=== PATIENT | male | born 1950 | race Caucasian/White ===

== ENCOUNTER 2016-03-31 13:13 | Emergency (ER) | payer MEDICARE, OTHER ==
[~2016-03-31] VITALS: Ht 167.6 cm; Wt 100.0 kg
[2016-03-31 13:23] VITALS: BP 143/82; PULSE 72; RESP 16; TEMP 98.2; O2SAT 96
[2016-03-31 13:57] VITALS: BP 134/90; PULSE 94; RESP 18; O2SAT 97; O2SAT 98
[2016-03-31 14:19] LABS: BASOPHIL # 0.1 TH/MM3 (0-0.2); BASOPHIL % 0.8 % (0.0-2.0); HEMATOCRIT 36.6 % (39.0-51.0); HEMO FLAGS DIFF FINAL; LYMPH % 14.6 % (9.0-44.0); MEAN CELL VOLUME 92.4 FL (80.0-100.0); MEAN CORPUSCULAR HGB CONC 33.6 % (32.0-36.0); NEUT % 74.6 % (16.0-70.0); PLATELET COUNT 177 TH/MM3 (150-450); RED BLOOD COUNT 3.96 MIL/MM3 (4.50-5.90); RED CELL DISTRIBUTION WIDTH 15.9 % (11.6-17.2); WHITE BLOOD COUNT 6.6 TH/MM3 (4.0-11.0)
[2016-03-31 14:35] LABS: BICARBONATE 25.4 MEQ/L (21.0-32.0); POTASSIUM 4.3 MEQ/L (3.5-5.1)
[2016-03-31 14:36] LABS: APTT (PATIENT) 25.7 SEC (24.3-30.1); INTERNATIONAL NORMALIZED RATIO 1.1 RATIO; PROTHROMBIN TIME - PATIENT 12.1 SEC (9.8-11.6)
[2016-03-31] MEDS ORDERED: LISI40TA PO (14:39)
[2016-03-31] MEDS ORDERED: ALLO300T2 PO (14:39)
[2016-03-31] MEDS ORDERED: GABA300C5 PO ×2 (14:39→16:15)
[2016-03-31] MEDS ORDERED: SIMV20TA PO (14:39)
[2016-03-31] MEDS ORDERED: OMEP20CA2 PO (14:39)
[2016-03-31] MEDS ORDERED: TOPR50TA PO (14:39)
[2016-03-31] MEDS ORDERED: TAPE50TA2 PO (14:39)
[2016-03-31 14:45] LABS: TOTAL BILIRUBIN ADULT 0.6 MG/DL (0.2-1.0)
[2016-03-31] MEDS ORDERED: SODIUM CHLOR 0.9% 1000 ML INJ 1,000 ML IV SCH (14:47)
--- NOTE | 2016-03-31 14:53 | PD ---
HPI Chief Complaint: GI Complaint Time Seen by Provider: 14:48 Travel History International Travel<30 days: No Contact w/Intl Traveler<30days: No Traveled to known affect area: No History of Present Illness HPI 66-year-old male that presents to the ED for evaluation of nausea and vomited and loss of weight and inability to eat for the past 2-3 months. Per patient he has had 3 major surgeries in his abdomen mainly for bypass surgery, hernia repair and perforated bowel. Patient states that he hasn't had any issues with the surgeries but he does tell me that he's been feeling more nauseous and vomiting. Per patient he is able to keep down his pills that he is having difficulty keeping food. Per patient his appetite seems to be gone. He denies any chest pain or shortness of breath. Per patient he hasn't really eaten much in the past 2-3 months and he is losing a lot of weight. He has no PCP in the area. Per patient she feels weak as well. No headache. No blurry vision. No bowel movement or urinary issues. Per patient when he vomits he vomits saliva and he is not really having any bowel movement secondary to not eating much. Denies any fevers chills or sweats. Has an allergy to Coltezene. He states that he went to an urgent care today to get evaluated for this as he was concerned and the doctor at the urgent care told to come here to get evaluated for likely IV fluids and imaging and labs. PFSH Past Medical History Tetanus Vaccination: < 5 Years Influenza Vaccination: Yes Past Surgical History Abdominal Surgery: Yes (HERNIA SURGERY ) Other Surgery: Yes (LASIX SURGERY BOTH EYES) Social History Alcohol Use: Yes (LIQUOR DAILY ) Tobacco Use: No Substance Use: No Allergies-Medications (Allergen,Severity, Reaction): Uncoded Allergies: COLTEZENE (Adverse Reaction, Unknown, DIARRHEA, 03/31/16) Reported Meds & Prescriptions Reported Meds & Active Scripts Active Reported Gabapentin 300 Mg Cap 300 Mg PO BID Allopurinol 300 Mg Tab 300 Mg PO BID Omeprazole 20 Mg Cap 20 Mg PO BID Nucynta ER (Tapentadol) 50 Mg Toni 50 Mg PO BID Simvastatin 20 Mg Tab 20 Mg PO HS Lisinopril 40 Mg Tab 40 Mg PO DAILY Toprol XL (Metoprolol Succinate) 50 Mg Tab 50 Mg PO BID Review of Systems Except as stated in HPI: all other systems reviewed are Neg Physical Exam Narrative GENERAL: SKIN: Warm and dry. HEAD: Atraumatic. Normocephalic. EYES: Pupils equal and round. No scleral icterus. No injection or drainage. ENT: No nasal bleeding or discharge. Mucous membranes pink and moist. Tongue is midline. No uvula deviation. No sign of mass or deformity to the throat. NECK: Trachea midline. No JVD. CARDIOVASCULAR: Regular rate and rhythm. No murmurs, S3, S4. RESPIRATORY: No accessory muscle use. Clear to auscultation. Breath sounds equal bilaterally. GASTROINTESTINAL: Abdomen soft, non-tender, nondistended. Hepatic and splenic margins not palpable. Patient does have multiple surgical scars to the abdomen. MUSCULOSKELETAL: Extremities without clubbing, cyanosis, or edema. No obvious deformities. Full range of motion of the upper and lower extremities bilaterally. 2+ pulses bilaterally. NEUROLOGICAL: Awake and alert. No obvious cranial nerve deficits. Motor grossly within normal limits. Five out of 5 muscle strength in the arms and legs. Normal speech. PSYCHIATRIC: Appropriate mood and affect; insight and judgment normal. Data Data Last Documented VS Vital Signs Date Time Temp Pulse Resp B/P Pulse Ox O2 Delivery O2 Flow Rate FiO2 03/31/16 13:57 98 Room Air 03/31/16 13:57 94 18 134/90 03/31/16 13:23 98.2 Orders Electrocardiogram (03/31/16 13:55) Complete Blood Count With Diff (03/31/16 13:55) Comprehensive Metabolic Panel (03/31/16 13:55) Prothrombin Time / Inr (Pt) (03/31/16 13:55) Act Partial Throm Time (Ptt) (03/31/16 13:55) Lipase (03/31/16 13:55) Urinalysis - C+S If Indicated (03/31/16 13:55) Thyroid Stimulating Hormone (03/31/16 13:55) Iv Access Insert/Monitor (03/31/16 13:55) Ecg Monitoring (03/31/16 13:55) Oximetry (03/31/16 13:55) Ct Abd/Pel W Iv Contrast(Rout) (03/31/16 14:18) Sodium Chlor 0.9% 1000 Ml Inj (Ns 1000 M (03/31/16 14:47) Chest, Single Ap (03/31/16 ) Iohexol 350 Inj (Omnipaque 350 Inj) (03/31/16 15:14) Labs Laboratory Tests Test 03/31/16 14:10 White Blood Count 6.6 TH/MM3 Red Blood Count 3.96 MIL/MM3 Hemoglobin 12.3 GM/DL Hematocrit 36.6 % Mean Corpuscular Volume 92.4 FL Mean Corpuscular Hemoglobin 31.0 PG Mean Corpuscular Hemoglobin 33.6 % Concent Red Cell Distribution Width 15.9 % Platelet Count 177 TH/MM3 Mean Platelet Volume 8.8 FL Neutrophils (%) (Auto) 74.6 % Lymphocytes (%) (Auto) 14.6 % Monocytes (%) (Auto) 10.0 % Eosinophils (%) (Auto) 0.0 % Basophils (%) (Auto) 0.8 % Neutrophils # (Auto) 5.0 TH/MM3 Lymphocytes # (Auto) 1.0 TH/MM3 Monocytes # (Auto) 0.7 TH/MM3 Eosinophils # (Auto) 0.0 TH/MM3 Basophils # (Auto) 0.1 TH/MM3 CBC Comment DIFF FINAL Differential Comment Prothrombin Time 12.1 SEC Prothromb Time International 1.1 RATIO Ratio Activated Partial 25.7 SEC Thromboplast Time Sodium Level 141 MEQ/L Potassium Level 4.3 MEQ/L Chloride Level 105 MEQ/L Carbon Dioxide Level 25.4 MEQ/L Anion Gap 11 MEQ/L Blood Urea Nitrogen 11 MG/DL Creatinine 1.46 MG/DL Estimat Glomerular Filtration 48 ML/MIN Rate Random Glucose 160 MG/DL Calcium Level 7.2 MG/DL Protein Corrected Calcium 8.0 MG/DL Total Bilirubin 0.6 MG/DL Aspartate Amino Transf 91 U/L (AST/SGOT) Alanine Aminotransferase 37 U/L (ALT/SGPT) Alkaline Phosphatase 146 U/L Total Protein 5.6 GM/DL Albumin 2.9 GM/DL Lipase 73 U/L Thyroid Stimulating Hormone 0.703 uIU/ML 3rd Gen [facility] Medical Decision Making Medical Screen Exam Complete: Yes Emergency Medical Condition: Yes Medical Record Reviewed: Yes Interpretation(s) CBC & BMP Diagram 03/31/16 14:10 LFTs WNL Lipase WNL Last Impressions Abdomen/Pelvis CT 03/31/16 1418 Signed Impressions: Service Date/Time: Thursday, March 31, 2016 15:04 - CONCLUSION: Gallstones. Left kidney lower pole calyceal nonobstructing stones . Small 1-2 cm patchy area of airspace disease in the right middle lobe. Surgical clips and shaunna at the GE junction and fundus of the stomach Guilherme Lynn MD Chest X-Ray 03/31/16 0000 Signed Impressions: Service Date/Time: Thursday, March 31, 2016 15:45 - CONCLUSION: No acute disease. Guilherme Lynn MD Differential Diagnosis Malnutrition versus anorexia versus obstruction versus acute abdomen versus pancreatitis versus liver disease versus electrolyte abnormality versus kidney disease Narrative Course 66-year-old male that presents to the ED for evaluation of inability to eat and nausea and vomiting. Patient was properly examined and was found to have signs and symptoms of unclear etiology at this time. physical exam and vitals appears to be reassuring. Patient does not appear to be very dehydrated. Concern for obstruction is present. Labs and imaging ordered. Labs and imaging WNL. Patient was told about results. Patient was told that she will likely require follow-up with a GI specialist to better evaluate for this. CT of the abdomen did show patchy airspace disease on the right side. This is likely secondary to chronic lung disease but we'll treat with azithromycin cover for infection. Patient was given Zofran for his nausea and vomiting. Patient was given a refill of his gabapentin. Patient was told that he needs to follow closely with GI. Given information for Dr. Ward. He agrees with plan. He understands that he needs to follow-up. See ED worsening symptoms. Diagnosis Primary Impression: Nausea & vomiting Qualified Code: R11.2 - Non-intractable vomiting with nausea, unspecified vomiting type Additional Impression: Malnutrition Referrals: Keyonna Ward MD Patient Instructions: General Instructions Additional Instructions: Take medication as prescribed. Follow with PCP. See ED worsening symptoms. Follow with GI doctor for further testing. Take protein shake or ensure over- the-counter to help with malnourishment. Med/Other Pt SpecificInfo: Prescription(s) given Scripts Azithromycin 250 Mg [id number] Mg PO DIRECTED #6 TAB Take 2 tabs (500 mg) on day 1 then 1 tab daily x 4 days. Prov:Paz Shook MD 03/31/16 Ondansetron (Zofran)4 Mg Tab4 Mg PO Q6HR PRN (NAUSEA OR VOMITING) #20 TAB Prov:Paz Shook MD 03/31/16 Gabapentin 300 Mg [id number] Mg PO BID #60 CAP Ref 0 Prov:Paz Shook MD 03/31/16 Disposition: 01 DISCHARGE HOME Condition: Stable José Luis Can Mar 31, 2016 14:53
[2016-03-31] MEDS ORDERED: IOHEXOL 350 MG/ML 10 ML VIAL (for RAD DIAG) IV ONE (15:14)
--- NOTE | 2016-03-31 15:24 | RADRPT ---
EXAM DATE/TIME: 03/31/2016 15:04 [facility] COMPARISON: No previous studies available for comparison. INDICATIONS : Abdominal pain IV CONTRAST: 93 cc Omnipaque 350 (iohexol) IV ORAL CONTRAST: No oral contrast ingested. RADIATION DOSE: 11.71 CTDIvol (mGy) MEDICAL HISTORY : None documented. SURGICAL HISTORY : Hernia repair. ENCOUNTER: Initial ACUITY: 1 day PAIN SCALE: 5/10 LOCATION: Bilateral lower quadrant TECHNIQUE: Volumetric scanning of the abdomen and pelvis was performed. Using automated exposure control and adjustment of the mA and/or kV according to patient size, radiation dose was kept as low as reasonably achievable to obtain optimal diagnostic quality images. FINDINGS: LOWER LUNGS: Small patchy area of airspace disease in the right lower lobe 1-2 cm in size LIVER: Homogeneous density without lesion. There is no dilation of the biliary tree. Gallbladder shows luminal structure with layering of stones posteriorly SPLEEN: Normal size without lesion. PANCREAS: Within normal limits. KIDNEYS: Normal in size and shape. There is no mass or hydronephrosis. There is a casting of the left lower pole calyceal system with a stone 1.6 cm in maximal size and a few adjacent nonobstructin g calyceal stones in the region thereADRENAL GLANDS: Within normal limits. VASCULAR: There is no aortic aneurysm. BOWEL/MESENTERY: The stomach, small bowel, and colon demonstrate no acute abnormality. There is no free intraperitoneal air or fluid. Surgical clips and shaunna at the GE junction and fundus of the stomach ABDOMINAL WALL: Within normal limits. RETROPERITONEUM: There is no lymphadenopathy. BLADDER: No wall thickening or mass. REPRODUCTIVE: Within normal limits. INGUINAL: There is no lymphadenopathy or hernia. MUSCULOSKELETAL: Within normal limits for patient age. CONCLUSION: Gallstones. Left kidney lower pole calyceal nonobstructing stones . Small 1-2 cm patc hy area of airspace disease in the right middle lobe. Surgical clips and shaunna at the GE junction a nd fundus of the stomach Guilherme Lynn MD on March 31, 2016 at 15:16 Board Certified Radiologist. This report was verified electronically.
--- NOTE | 2016-03-31 16:02 | RADRPT ---
EXAM DATE/TIME: 03/31/2016 15:45 [facility] COMPARISON: No previous studies available for comparison. INDICATIONS : Short of breath, lack of appetite. MEDICAL HISTORY : None. SURGICAL HISTORY : None. ENCOUNTER: Initial ACUITY: 2 months PAIN SCORE: 0/10 LOCATION: Bilateral chest FINDINGS: A single view of the chest demonstrates the lungs to be symmetrically aerated without evidence of mas s, infiltrate or effusion. The cardiomediastinal contours are unremarkable. Osseous structures are intact. CONCLUSION: No acute disease. Guilherme Lynn MD on March 31, 2016 at 16:00 Board Certified Radiologist. This report was verified electronically.
[2016-03-31] MEDS ORDERED: ZOFR4TAB PO (16:15)
[2016-03-31] MEDS ORDERED: AZIT250T3 PO (16:15)
--- NOTE | 2016-03-31 16:23 | PD ---
Physical Exam Date Seen by Provider: Mar 31, 2016 Time Seen by Provider: 15:00 Narrative I, Dr. Shook, have reviewed the advance practice practitioner's documentation and am in agreement, met with the patient face to face, made the diagnosis, and the medical decision making was done by me. *My assessment and Findings: Patient seen and evaluated with PA, please see PA for further details. Here with several months history abdominal pains, mostly in the upper abdomen. Intermittent vomiting. On exam, mildly tender palpation in the upper abdomen without guarding or rebound. Chest and pulmonary exam essentially unremarkable. Laboratory Tests Test 03/31/16 14:10 Red Blood Count 3.96 MIL/MM3 (4.50-5.90) Hemoglobin 12.3 GM/DL (13.0-17.0) Hematocrit 36.6 % (39.0-51.0) Neutrophils (%) (Auto) 74.6 % (16.0-70.0) Monocytes (%) (Auto) 10.0 % (0.0-8.0) Prothrombin Time 12.1 SEC (9.8-11.6) Creatinine 1.46 MG/DL (0.60-1.30) Estimat Glomerular Filtration 48 ML/MIN (>89) Rate Random Glucose 160 MG/DL (74-106) Calcium Level 7.2 MG/DL (8.5-10.1) Protein Corrected Calcium 8.0 MG/DL (8.5-10.1) Aspartate Amino Transf 91 U/L (15-37) (AST/SGOT) Alkaline Phosphatase 146 U/L (45-117) Total Protein 5.6 GM/DL (6.4-8.2) Albumin 2.9 GM/DL (3.4-5.0) Last 24 hours Impressions Abdomen/Pelvis CT 03/31/16 1418 Signed Impressions: Service Date/Time: Thursday, March 31, 2016 15:04 - CONCLUSION: Gallstones. Left kidney lower pole calyceal nonobstructing stones . Small 1-2 cm patchy area of airspace disease in the right middle lobe. Surgical clips and shaunna at the GE junction and fundus of the stomach Guilherme Lynn MD Chest X-Ray 03/31/16 0000 Signed Impressions: Service Date/Time: Thursday, March 31, 2016 15:45 - CONCLUSION: No acute disease. Guilherme Lynn MD Lab work, chest x-ray, and CAT scan did not reveal any signs of obvious acute issues. At this point, my plan would be to release patient with follow-up to primary care physician for further evaluation. Return as needed for new issues as needed. Data Data Last Documented VS Vital Signs Date Time Temp Pulse Resp B/P Pulse Ox O2 Delivery O2 Flow Rate FiO2 03/31/16 13:57 98 Room Air 03/31/16 13:57 94 18 134/90 03/31/16 13:23 98.2 Orders Electrocardiogram (03/31/16 13:55) Complete Blood Count With Diff (03/31/16 13:55) Comprehensive Metabolic Panel (03/31/16 13:55) Prothrombin Time / Inr (Pt) (03/31/16 13:55) Act Partial Throm Time (Ptt) (03/31/16 13:55) Lipase (03/31/16 13:55) Urinalysis - C+S If Indicated (03/31/16 13:55) Thyroid Stimulating Hormone (03/31/16 13:55) Iv Access Insert/Monitor (03/31/16 13:55) Ecg Monitoring (03/31/16 13:55) Oximetry (03/31/16 13:55) Ct Abd/Pel W Iv Contrast(Rout) (03/31/16 14:18) Sodium Chlor 0.9% 1000 Ml Inj (Ns 1000 M (03/31/16 14:47) Chest, Single Ap (03/31/16 ) Iohexol 350 Inj (Omnipaque 350 Inj) (03/31/16 15:14) Labs Laboratory Tests Test 03/31/16 14:10 White Blood Count 6.6 TH/MM3 Red Blood Count 3.96 MIL/MM3 Hemoglobin 12.3 GM/DL Hematocrit 36.6 % Mean Corpuscular Volume 92.4 FL Mean Corpuscular Hemoglobin 31.0 PG Mean Corpuscular Hemoglobin 33.6 % Concent Red Cell Distribution Width 15.9 % Platelet Count 177 TH/MM3 Mean Platelet Volume 8.8 FL Neutrophils (%) (Auto) 74.6 % Lymphocytes (%) (Auto) 14.6 % Monocytes (%) (Auto) 10.0 % Eosinophils (%) (Auto) 0.0 % Basophils (%) (Auto) 0.8 % Neutrophils # (Auto) 5.0 TH/MM3 Lymphocytes # (Auto) 1.0 TH/MM3 Monocytes # (Auto) 0.7 TH/MM3 Eosinophils # (Auto) 0.0 TH/MM3 Basophils # (Auto) 0.1 TH/MM3 CBC Comment DIFF FINAL Differential Comment Prothrombin Time 12.1 SEC Prothromb Time International 1.1 RATIO Ratio Activated Partial 25.7 SEC Thromboplast Time Sodium Level 141 MEQ/L Potassium Level 4.3 MEQ/L Chloride Level 105 MEQ/L Carbon Dioxide Level 25.4 MEQ/L Anion Gap 11 MEQ/L Blood Urea Nitrogen 11 MG/DL Creatinine 1.46 MG/DL Estimat Glomerular Filtration 48 ML/MIN Rate Random Glucose 160 MG/DL Calcium Level 7.2 MG/DL Protein Corrected Calcium 8.0 MG/DL Total Bilirubin 0.6 MG/DL Aspartate Amino Transf 91 U/L (AST/SGOT) Alanine Aminotransferase 37 U/L (ALT/SGPT) Alkaline Phosphatase 146 U/L Total Protein 5.6 GM/DL Albumin 2.9 GM/DL Lipase 73 U/L Thyroid Stimulating Hormone 0.703 uIU/ML 3rd Gen [facility] Medical Record Reviewed: Yes Supervised Visit with VICTORINO: Yes Diagnosis Primary Impression: Nausea and vomiting Scripts Azithromycin 250 Mg [id number] Mg PO DIRECTED #6 TAB Take 2 tabs (500 mg) on day 1 then 1 tab daily x 4 days. Prov:Paz Shook MD 03/31/16 Ondansetron (Zofran)4 Mg Tab4 Mg PO Q6HR PRN (NAUSEA OR VOMITING) #20 TAB Prov:Paz Shook MD 03/31/16 Gabapentin 300 Mg [id number] Mg PO BID #60 CAP Ref 0 Prov:Paz Shook MD 03/31/16 Condition: Stable Paz Shook MD Mar 31, 2016 16:23
[2016-03-31 16:55] LABS: BLOOD, URINE NEG (NEG); COMMENT (UR) CULT NOT INDICATED; CULTURE IF INDICATED CULT NOT INDICATED; GLUCOSE,URINE NEG (NEG); HYALINE CAST, URINE 7 /lpf (RARE); KETONE, URINE NEG (NEG); NITRITE,URINE NEG (NEG); PH, URINE 6.5 (5.0-8.5); SQUAMOUS EPITHELIAL CELL URINE <1 /hpf (0-5); URINE COLOR YELLOW (YELLW/STRAW)
[2016-03-31 17:26] VITALS: BP 139/87; PULSE 87; RESP 18; O2SAT 97
--- NOTE | 2016-04-01 12:09 | EKG ---
Date Performed: 03/31/2016 Time Performed: 14:22:28 PTAGE: 66 years EKG: Sinus rhythm NONSPECIFIC ST & T-WAVE ABNORMALITY BORDERLINE ECG NO PREVIOUS TRACING DOCTOR: Josesito Lackey Interpretating Date/Time 04/01/2016 12:06:44
== END 2016-03-31 17:27 | disposition home or self-care (01) ==
LOC: NEPC 13:13
DX: R11.2 Nausea with vomiting, unspecified (principal); E46 Unspecified protein-calorie malnutrition; R63.4 Abnormal weight loss; R53.1 Weakness; R10.10 Upper abdominal pain, unspecified; R91.8 Other nonspecific abnormal finding of lung field; R94.31 Abnormal electrocardiogram [ECG] [EKG]; Z98.890 Other specified postprocedural states
CPT/HCPCS: 71010; 74177; 80053; 81001; 83690; 84443; 85025; 85610; 85730; 93005; 96360; 99284; J7030; Q9967